=== PATIENT | male | born 1945 | race Caucasian/White ===

== ENCOUNTER 2018-06-25 16:53 | Inpatient (IN) ==
[2018-06-25] MEDS ORDERED: DILAUDID IV ONE (20:53)
[2018-06-25] MEDS ORDERED: ZOFRAN IV ONE (20:53)
[2018-06-25] MEDS ORDERED: KEFZOL 2 GM/D5W 2 GM/50 ML IVPB IV ONE (21:23)
--- NOTE | 2018-06-25 22:40 | HISTORY AND PHYSICAL ---
ADDENDUM HISTORY OF PRESENT ILLNESS: Mr. Juan Kruger is a 72-year-old male with no significant past medical history other than prior prostate cancer status post prostatectomy. He comes in today complaining of right ankle pain after slipping on a wet floor and twisting his ankle. He was brought to the ER at [facility], where it was noted he had a complete fracture of his right distal tibia and fibula. Dr. Rice, the orthopaedist, was notified, and he told them to transfer the patient here. He has currently seen the patient on the floor. The patient's only complaint is that of pain in his right ankle, not responding to 4 mg of morphine. He also complains of some cramping in that leg. He denies any head injury when he fell. He was able to brace himself with his arms backward, and no loss of consciousness. No cardiorespiratory complaints. PHYSICAL EXAMINATION: VITAL SIGNS: Stable. EXTREMITIES: His leg is wrapped in an NO dressing. I reviewed the x-rays the family brought, and he does have a large area of ecchymosis on the entire medial right area extending to the medial aspect of his right foot. He does have pulses in that foot and is able to wiggle his toes. CARDIORESPIRATORY: Normal. ABDOMEN: Benign. SKIN: No edema noted. Both feet are warm to touch. SUMMARY: This is an elderly man who sustained a distal tib-fib fracture and probably will be going for surgical intervention, plan to be decided by Dr. Rice, who is currently seeing the patient. He does have overflow incontinence, and will continue with his Flomax. Otherwise, he has no other medical problems and will be managed symptomatically. cc: Sukh Raphael MD
--- NOTE | 2018-06-26 00:59 | CONSULTATION ---
DATE OF CONSULTATION: 06/25/2018 CHIEF COMPLAINT: Right Ankle Injury. HISTORY OF PRESENT ILLNESS: Juan Friedman is a 72-year-old male who fell going down some steps, rolling his ankle and he sustained a fracture dislocation of his ankle. He was seen at [facility], where attempted closed reduction and splinting was performed. He was transferred here. PHYSICAL EXAMINATION: Reveals a well-developed, well-nourished male. He is alert, oriented, and cooperative with exam. His ankle is obviously dislocated. His foot, however, he is neurovascularly intact with intact sensation and brisk capillary refill. We performed a closed reduction in the room and placed him in a posterior splint with a stirrup. He tolerated this well. For past medical history, past surgical history, medicines, allergies see admission history and physical. ASSESSMENT: Right trimalleolar ankle fracture. PLAN: We will plan on doing an open reduction, internal fixation of his ankle in the morning. I have discussed with him the risks, benefits, and alternatives of surgery, including, but not limited to bleeding, nerve damage, infection, risk from anesthesia, hardware failure, malunion, nonunion, up to including loss of limb, life, and other imponderables. All questions were answered. No guarantees were given. They requested to proceed as planned. We will schedule surgery in the morning. cc: Tony Rice MD
[2018-06-26] MEDS ORDERED: ZOFRAN IV PRN (01:28)
[2018-06-26] MEDS ORDERED: TYLENOL PO PRN (01:33)
[2018-06-26] MEDS ORDERED: DILAUDID IV PRN (01:34)
[2018-06-26 06:43] LABS: INR 0.98; PROTIME 13.8 Seconds (11.0-16.0)
[2018-06-26 06:44] LABS: PTT 29.7 Seconds (22.3-41.8)
[2018-06-26 07:09] LABS: AGAP 12; ALB/GLOB RATIO 1.2; ALBUMIN 3.8 g/dL (3.5-5.0); ALKALINE PHOSPHATASE 72 U/L (32-122); BUN 16 mg/dL (8-22); CHLORIDE 100 mmol/L (98-107); COSMO 274; CREATININE 1.1 mg/dL (0.7-1.2); ESTIMATED GFR > 60; GLUCOSE 80 mg/dL (70-104); GOT 19 U/L (10-34); GPT 17 U/L (10-44); POTASSIUM 4.2 mmol/L (3.5-5.1); SODIUM 137 mmol/L (136-145); TCO2 25 mmol/L (25-35); TOTAL BILIRUBIN 0.74 mg/dL (0.20-1.00); TOTAL PROTEIN 6.9 g/dL (6.3-8.3)
[2018-06-26] MEDS ORDERED: MARCAINE 0.5% PF ONE (07:17)
[2018-06-26] MEDS ORDERED: XYLOCAINE-MPF 2% ONE (07:34)
[2018-06-26] MEDS ORDERED: DIPRIVAN 1% ONE (07:35)
[2018-06-26] MEDS ORDERED: KEFZOL 1 GM/D5W 2 GM/100 ML IVPB ONE (07:51)
[2018-06-26] MEDS ORDERED: NAROPIN 0.5% ONE (07:56)
[2018-06-26] MEDS ORDERED: VERSED ONE (07:57)
[2018-06-26 08:11] LABS: BASO# 0.04 X1000 (0.0-0.2); BASO% 0.4 % (0.0-0.8); EOS# 0.05 X1000 (0.0-0.7); EOS% 0.5 % (0.0-10.0); HEMATOCRIT 48.8 % (42.0-52.0); HEMOGLOBIN 16.1 g/dL (14.0-18.0); LYMPH# 1.56 X1000 (1.2-3.4); LYMPH% 15.9 % (20.5-51.1); MCH 27.7 PG (27-31); MCV 83.8 FL (81-99); MONO# 1.03 X1000 (0.11-0.59); MONO% 10.5 % (1.7-9.3); MPV 11.7 FL (7.4-10.4); NEUT# 7.12 X1000 (1.4-6.5); NEUT% 72.7 % (42.2-75.2); PLT 230 X1000 (130-400); RBC 5.82 XMIL (4.7-6.1); RDW 13.1 % (11.5-14.5)
[2018-06-26] MEDS ORDERED: QUELICIN (DOSE) ONE (08:36)
[2018-06-26] MEDS ORDERED: DECADRON ONE (08:58)
[2018-06-26] MEDS ORDERED: ZOFRAN ONE (08:58)
[2018-06-26] MEDS ORDERED: MIRALAX PO SCH (09:00)
[2018-06-26] MEDS ORDERED: EPHEDRINE ONE (09:14)
--- NOTE | 2018-06-26 10:25 | HISTORY AND PHYSICAL ---
DATE AND TIME: 06/25/2018 at 2045. CHIEF COMPLAINT: Fall with right ankle pain and injury. HISTORY OF PRESENT ILLNESS: Mr. Kruger is a 72-year-old male who initially presented to [facility] ER after sustaining a fall at home. The patient reports that he was walking on the porch and did go to step down the step off of the porch, this was a wooden step that was wet. The patient reports that he did slip due to the step being wet and did start to fall backward. The patient reports that he put his hands back to catch himself though in the process did twist his right ankle. The patient reports that he did land on his bottom in the sacral area. He denied hitting his head. He denied any loss of consciousness. At this time, he denies any lower back or buttock pain, though he did present to the ER with right ankle pain and deformity. In the ER at [facility], the patient's x-ray did show that he had fractures of the distal fibula and medial malleolus with suspected residual tibiotalar dislocation. X-ray of pelvis did not show any acute traumatic abnormalities suggested. There were some mild degenerative changes seen along the course of the included lumbosacral spine. There was mild bilateral hip arthritic joint space narrowing seen. According to the ER records at [facility], it looks as though the patient was given pain medication of morphine and sedation of Versed for closed reduction of his right ankle fracture/ dislocation. This was splinted, and the patient was transferred and accepted by Dr. Rice with Orthopedic Surgery. Upon our initial examination of the patient in his inpatient room, he was reporting pain that was 9/10. His ankle did appear to be possibly still dislocated. Dr. Rice with Orthopedic Surgery was present at bedside as well. At this time, we did give the patient pain medication of Dilaudid, and Dr. Rice did successfully reduce the patient's right ankle at bedside. An OCL posterior and stirrup splint was placed. The patient, prior to and post reduction, did have good neurovascular status in his right foot distal to his ankle injury. He had good capillary refill that was 2 seconds. Pulses were 2+. Dr. Rice does plan to take the patient for surgical repair of his right ankle fracture tomorrow morning. Other than his reported right ankle pain, the patient is denying any other pain at this time. He denies any headache or dizziness. He denies any chest pain, shortness of breath or cough. He denies any abdominal pain, nausea, vomiting or diarrhea. The patient does report that he has chronic problems with constipation and does take MiraLAX frequently. He denies any dysuria or urinary frequency. Other than his abnormalities noted to his right lower extremity secondary to his fracture, he denies any pain , numbness or tingling in other extremities. REVIEW OF SYSTEMS: A 14-point review of systems was conducted with the patient , and all were negative except for pertinent positives mentioned in the above HPI. PAST MEDICAL HISTORY: 1. Chronic constipation. 2. History of prostate cancer, status post prostatectomy. PAST SURGICAL HISTORY: 1. Cholecystectomy. 2. Prostatectomy. SOCIAL HISTORY: The patient did report social weekend use of alcohol, though states that he has not drank any alcohol for several years. There is no known tobacco or illicit drug use. The patient is retired. He does live at home. He reports that his son and daughter -in-law do live with him. FAMILY HISTORY: Positive for his mother having a history of emphysema and his father having a history of stroke and myocardial infarction. ALLERGIES: The patient has no known allergies. HOME MEDICATIONS: 1. Flomax p.o. daily. 2. MiraLAX 17 g p.o. daily. DIAGNOSTIC DATA: These laboratory results are based off the labs that were drawn earlier in the evening at [facility] on 06/25/2018 at 1408. White blood cell count is 9.4, hemoglobin 15.2, hematocrit 46.4, platelet count is 237. Sodium is 140, potassium 4.2, chloride 103, serum bicarb is 28, BUN is 15, creatinine 1.2, calcium is 9.2, glucose 98. Liver function tests were within normal limits. X-ray of right ankle 3 view did show severe fracture and dislocation of the ankle. The impression reports that there is an oblique fracture through the distal fibula. There is also an overriding and medial displacement of the proximal shaft when compared to the distal shaft. There was also a transverse fracture through the medial malleolus with dislocation of the shaft of the talus medially. The ankle mortis laterally is intact, though the ankle mortis is otherwise disrupted. There is a fracture through the fracture fragment between the distal tibia and fibula that the donor site may be posterior to the malleolus. There was also x-ray of ankle one view which reported fractures of the distal fibula and medial malleolus with suspected residual tibiotalar dislocation. Pelvis x-ray did show no acute traumatic abnormalities suggested, though there were mild degenerative changes seen along the course of the included lumbosacral spine. There was mild bilateral hip arthritic joint space narrowing seen. PHYSICAL EXAMINATION: VITAL SIGNS: Temperature is 98, heart rate 82, respirations 16, blood pressure 154/77, oxygen saturation is 98% on room air. GENERAL: Mr. Kruger is a very pleasant 72-year-old male. He was resting comfortably in the inpatient bed. He was in no acute distress, though he was reporting ankle pain that was 9/10. HEENT: Head is atraumatic and normocephalic. Pupils are equal, round and reactive to light, were 3 mm bilaterally and brisk. Oral mucosa is moist. Oropharynx is clear. NECK: Supple. Trachea midline. CARDIOVASCULAR: The patient has S1 and S2 present. No murmurs, gallops or rubs appreciated with a regular rate and rhythm. PULMONARY: The patient has symmetrical chest expansion bilaterally. Lung sounds are clear to auscultation in bilateral full iraheta. ABDOMEN: Soft, nontender, nondistended. Bowel sounds are present in all 4 quadrants and were normoactive. EXTREMITIES: The patient did initially have deformity noted to his right lower extremity, even with his splint placed at [facility] in place. Though even with his dislocation, the patient did have good capillary refill, and his neurovascular status was intact with pulses that were 2+ in his right foot. Though Dr. Rice with Orthopedic Surgery did do a bedside closed reduction of the patient's right ankle, this was splinted with OCL posterior and stirrup splint. Since reduction and placement of splint, the patient still continues to have good capillary refill which is 2 seconds. His neurovascular status is intact. All other extremities were within normal limits. Radial pulses were 2+. Pulse in the left foot was 2+ as well. INTEGUMENTARY: The patient's skin is pink, warm and dry. NEUROLOGICAL: The patient is alert and oriented x4. There were no focal neurological deficits noted. ASSESSMENT AND PLAN: 1. Right trimalleolar ankle fracture. As previously mentioned, the patient did undergo an initial reduction at [facility] with, from what I understand, was conscious sedation. Unfortunately, his right ankle was still dislocated upon arrival to our facility. Dr. Rice with Orthopedic Surgery did perform closed bedside reduction, and a splint was placed. The patient is remaining with good neurovascular status in his right foot distal to his injury. Dr. Rice with Orthopedic Surgery does plan to take the patient to surgery in the morning for repair of his fracture. He will be n.p.o. after midnight. We have ordered for morning labs as well as type and screen and an EKG. We will follow Orthopedic Surgery's further recommendations and follow along. 2. Fall from a standing position. The patient did state that he fell backward, landing on his sacral buttock area. Though he denies any pain at this time. The only pain he is reporting is his right ankle pain and injury. He denied hitting his head or any loss of consciousness. 3. Chronic constipation. We will continue the patient's MiraLAX. I have added on Colace as well given the patient will have decreased mobility and will be receiving narcotic pain medication. 4. GI prophylaxis will be provided with Protonix 40 mg IV q.24 hours. 5. DVT prophylaxis at this time will be provided with SCDs on the left lower extremity only. He will not be receiving any anticoagulants at this time given that he will be having surgery in the morning. We will defer further DVT prophylaxis to the Orthopedic Surgical Team. The patient has been placed on the Surgical Floor with telemetry. He will have vital signs q.4 hours. We will do strict intake and output. He will be n.p.o. Given this, we will provide some gentle IV hydration with normal saline at 85 mL per hour. Further orders and recommendations pending hospital course, diagnostic studies and physician evaluation. Dictated by HILDA Rico for Sukh Raphael MD cc: Sukh Raphael MD [facility]
[2018-06-26] MEDS ORDERED: NORCO-5 PO PRN (11:07)
[2018-06-26] MEDS: PERIDEX MT SCH ×2 (12:28→22:46)
[2018-06-26] MEDS: FLOMAX PO SCH (12:32)
[2018-06-26] MEDS: COLACE PO SCH ×2 (12:32→22:46)
[2018-06-26] MEDS: NS 1,000 ML IV SCH (12:34)
[2018-06-26] MEDS: PROTONIX IV SCH (12:35)
--- NOTE | 2018-06-26 16:59 | OPERATIVE NOTE ---
PROCEDURE DATE: 06/26/2018 PREOPERATIVE DIAGNOSIS: Right trimalleolar ankle fracture dislocation. POSTOP DIAGNOSIS: Right trimalleolar ankle fracture dislocation. PROCEDURE PERFORMED: Open reduction, internal fixation of right ankle trimalleolar fracture dislocation. ANESTHESIA: General with a regional popliteal block. SURGEON: Dr. Rice. MISSILE INSPECTOR PREFLIGHT: Ann. COMPLICATIONS: None. BLOOD LOSS: Minimal. TOURNIQUET TIME: Approximately hour and half. DESCRIPTION OF PROCEDURE: The patient was brought to the operative suite and placed in supine position. After successful administration of general anesthesia, a well-padded tourniquet was placed on right proximal thigh. Right lower extremity was prepped and draped in usual fashion. Leg was exsanguinated. Tourniquet insufflated to 350 torr. A longitudinal incision was made overlying the lateral malleolus fracture, dissected sharply through the skin down to the fascia protecting the superficial peroneal nerve. The fascia was incised exposing the fracture site. The fracture site was cleaned and reduced and 2 interfragmentary screws were placed and a Synthes distal fibular locking plate was placed with 5 locking screws distally and 4 bicortical screws proximally 3 of them locking. Attention then directed the medial malleolus fracture. A longitudinal incision made overlying the medial malleolus. The medial malleolus fracture was then cleaned and reduced and then two 45 mm partially threaded cancellous screws were placed. Excellent placement of hardware was obtained. The ankle was then stable. There was no syndesmosis, widening with stressing of the ankle. There was no posterior instability. X-rays AP, lateral, mortise views show the anatomic reduction of the fracture and the posterior malleolar fracture was less than 25% of the joint was anatomically reduced. The wounds were then copiously irrigated. The fascia was closed with 2-0 Vicryl, skin edge approximated 2-0 Vicryl, skin incisions were closed with interrupted nylon suture. A sterile dressing and a well-padded posterior splint with a stirrup and a cooling blanket were applied. The patient tolerated the procedure well without complication. At the end the procedure, all counts correct x2. The patient was transferred to the recovery room in stable condition. cc: Tony Rice MD
--- NOTE | 2018-06-26 18:56 | PROGRESS NOTE ---
DATE: 06/26/2018 SUBJECTIVE: Today, Mr. Kruger referred to be doing a lot better. He just came out of surgery. OBJECTIVE: Vital signs: Blood pressure 120/60, pulse was 95, respirations 16, temperature was 98.3. Patient was saturating about 96% on 2 L of oxygen. General: Mr. Kruger is a 72-year-old, gentleman. He was in bed. Not in any cardiopulmonary distress. HEENT: Mucosa is pink and moist. Anicteric. Acyanotic. Neck: Supple. Chest: Clear to auscultation. There were no crepitations, no rhonchi. Cardiovascular: Regular rate and rhythm. No murmurs, no rubs, no gallops. Abdomen: Soft, nontender. Bowel sounds present. Extremities: Right lower extremity is currently in orthopedic cast. Left is unremarkable. ASSESSMENT: 1. Right trimalleolar ankle fracture. Patient is status post surgical intervention. I presume open reduction internal fixation. However, I have not seen the operative report yet. Patient seems to be doing fairly okay after the surgery. He is immediate post surgery. We are going to keep monitoring his vitals and repeat his labs for tomorrow morning. 2. Status post mechanical fall. 3. Chronic constipation. We will continue with bowel regimen. cc: Yobani Monterroso MD
[2018-06-26] MEDS ORDERED: CHLORASEPTIC SPRAY MT PRN (22:27)
[2018-06-27 06:53] LABS: HEMATOCRIT 40.7 % (42.0-52.0); HEMOGLOBIN 13.3 g/dL (14.0-18.0); MCH 27.8 PG (27-31); MCHC 32.7 g/dL (33-37); MPV 11.7 FL (7.4-10.4); RBC 4.79 XMIL (4.7-6.1); RDW 13.2 % (11.5-14.5); WBC 10.34 X1000 (4.8-10.8)
[2018-06-27 07:02] LABS: AGAP 9; BUN 17 mg/dL (8-22); CALCIUM 8.1 mg/dL (8.8-10.2); CHLORIDE 103 mmol/L (98-107); COSMO 276; ESTIMATED GFR > 60; GLUCOSE 117 mg/dL (70-104); POTASSIUM 4.1 mmol/L (3.5-5.1); SODIUM 137 mmol/L (136-145); TCO2 25 mmol/L (25-35)
[2018-06-27] MEDS: FLOMAX PO SCH (10:18)
[2018-06-27] MEDS: COLACE PO SCH ×3 (10:18→22:31)
[2018-06-27] MEDS: MIRALAX PO SCH (10:19)
[2018-06-27] MEDS: PERIDEX MT SCH ×3 (10:19→22:32)
--- NOTE | 2018-06-27 14:50 | PROGRESS NOTE ---
DATE: 06/27/2018 SUBJECTIVE: This morning Mr. Kruger refers to be feeling a lot better than yesterday. He is now able to move his digits and he feels less pain. OBJECTIVE: Vital Signs: Blood pressure is 106/63, pulse is 95, respirations 20, temperature 98.1. General: Mr. Kruger is a 72-year-old gentleman. He was in bed. He is not in any distress. HEENT: Mucosa is pink and moist. Anicteric. Acyanotic. Neck: Supple. Chest: Clear to auscultation. No crepitations. No rhonchi. Cardiovascular: Regular rate and rhythm. Abdomen: Soft, nontender. Bowel sounds present. Extremities: The left is unremarkable. Right continues to be in orthopedic cast. LABORATORY DATA: WBC is 10.34, hemoglobin is 13.3, platelet count of 194,000. Chemistry is also reviewed, is unremarkable. Review of operative note yesterday indicates that open reduction/internal fixation of the right ankle trimalleolar fracture was done by Dr. Rice. ASSESSMENT: 1. Right trimalleolar ankle fracture. The patient is status post ORIF. Today is day #1 postop. Ortho is on board. 2. Status post mechanical fall. 3. Chronic constipation. We will continue with bowel regimen. PLAN: So, in general, Mr. Kruger is doing fairly okay. He is pending physical therapy evaluation. He is most times at home by himself, so he would need to be evaluated for possible rehab placement to help get him to his baseline. The patient has voiced his choice for [facility], so we will communicate this to the social services specialist. cc: Yobani Monterroso MD
--- NOTE | 2018-06-27 15:55 | PROGRESS NOTE ---
DATE: 06/27/2018 SUBJECTIVE: Juan Kruger is a 72-year-old male is postoperative day 1 from open reduction external fixation of his right ankle. He has no complaints. OBJECTIVE: He is a well-developed, well-nourished male, he is alert, oriented, cooperative exam, exam of his leg reveals the splint is intact. Toes are neurovascularly intact. His hematocrit is 40.7%. ASSESSMENT: Stable postop day 1 from a right ankle. PLAN: May wish to go to rehab, hopefully they can get him into rehab tomorrow sometime. cc: Tony Rice MD
[2018-06-27] MEDS: NORCO-10 PO PRN (16:41)
[2018-06-27] MEDS: NS 1,000 ML IV SCH (18:39)
[2018-06-27] MEDS: PROTONIX IV SCH (18:39)
[2018-06-27] MEDS: NORCO-7.5 PO PRN (22:35)
[2018-06-28] MEDS ORDERED: NS 500 ML IV ONE (03:41)
[2018-06-28 04:19] LABS: BASO# 0.02 X1000 (0.0-0.2); BASO% 0.2 % (0.0-0.8); EOS# 0.09 X1000 (0.0-0.7); HEMATOCRIT 39.2 % (42.0-52.0); HEMOGLOBIN 12.7 g/dL (14.0-18.0); IMM GRAN# 0.04 X1000 (0.0-0.04); IMM GRAN% 0.4 % (0.0-0.5); LYMPH# 1.38 X1000 (1.2-3.4); MCH 27.6 PG (27-31); MCHC 32.4 g/dL (33-37); MCV 85.2 FL (81-99); MONO# 1.15 X1000 (0.11-0.59); MONO% 12.5 % (1.7-9.3); NEUT# 6.53 X1000 (1.4-6.5); NEUT% 70.9 % (42.2-75.2); PLT 195 X1000 (130-400); RDW 13.1 % (11.5-14.5); WBC 9.21 X1000 (4.8-10.8)
[2018-06-28 04:45] LABS: AGAP 7; BUN 18 mg/dL (8-22); CHLORIDE 108 mmol/L (98-107); COSMO 283; ESTIMATED GFR > 60; GLUCOSE 103 mg/dL (70-104); POTASSIUM 4.4 mmol/L (3.5-5.1); SODIUM 141 mmol/L (136-145); TCO2 26 mmol/L (25-35)
[2018-06-28] MEDS: NORCO-7.5 PO PRN ×3 (05:08→22:10)
[2018-06-28 05:41] LABS: CK INDEX 1.7 (0.0-2.5); CK-MB 5.13 ng/mL (0.0-5.0)
--- NOTE | 2018-06-28 07:46 | EKG Report ---
Test Performed on : 06/27/2018 07:22:16 AM Test Reason : abnormal strip Blood Pressure : / mmHG Vent. Rate : 105 BPM Atrial Rate : 105 BPM P-R Int : 144 ms QRS Dur : 090 ms QT Int : 332 ms P-R-T Axes : 051 020 050 degrees QTc Int : 438 ms Sinus tachycardia. Otherwise normal ECG When compared with ECG of 03-FEB-2017 10:07, premature ventricular complexes. are no longer present Confirmed by Etelvina WELLS, Leeroy Parmar ([id number]) on 06/28/2018 9:13:32 PM
--- NOTE | 2018-06-28 09:41 | EKG Report ---
Test Performed on : 06/26/2018 07:03:02 AM Test Reason : EKG done Blood Pressure : / mmHG Vent. Rate : 075 BPM Atrial Rate : 075 BPM P-R Int : 142 ms QRS Dur : 090 ms QT Int : 386 ms P-R-T Axes : 054 010 047 degrees QTc Int : 431 ms Normal sinus rhythm. Normal ECG No previous ECGs available Confirmed by Leeroy Main MD ([id number]) on 06/28/2018 9:12:40 PM
[2018-06-28] MEDS: FLOMAX PO SCH (10:00)
[2018-06-28] MEDS: PERIDEX MT SCH (10:00)
[2018-06-28] MEDS: MIRALAX PO SCH ×2 (10:00→22:09)
[2018-06-28] MEDS: COLACE PO SCH ×2 (10:00→22:10)
--- NOTE | 2018-06-28 10:56 | EKG Report ---
Test Performed on : 06/28/2018 10:46:10 AM Test Reason : afib Blood Pressure : / mmHG Vent. Rate : 094 BPM Atrial Rate : 094 BPM P-R Int : 138 ms QRS Dur : 086 ms QT Int : 326 ms P-R-T Axes : 045 000 036 degrees QTc Int : 407 ms Normal sinus rhythm. Normal ECG When compared with ECG of 28-JUN-2018 03:08, (Unconfirmed) Sinus rhythm. has replaced Atrial fibrillation. Confirmed by Etelvina WELLS, Leeroy Parmar ([id number]) on 06/28/2018 9:17:27 PM
--- NOTE | 2018-06-28 11:01 | EKG Report ---
Test Performed on : 06/28/2018 03:08:32 AM Test Reason : 4N. No order in MT Blood Pressure : / mmHG Vent. Rate : 134 BPM Atrial Rate : 136 BPM P-R Int : 000 ms QRS Dur : 078 ms QT Int : 260 ms P-R-T Axes : 000 020 039 degrees QTc Int : 388 ms Atrial fibrillation. with rapid ventricular response. Abnormal ECG When compared with ECG of 27-JUN-2018 07:22, (Unconfirmed) Atrial fibrillation. has replaced Sinus rhythm. ST now depressed in Anterior leads Confirmed by Leeroy Main MD ([id number]) on 06/28/2018 9:14:30 PM
[2018-06-28] MEDS: SODIUM CHLORIDE 0.9% INJ SCH (12:37)
[2018-06-28] MEDS: PROTONIX IV SCH (12:37)
[2018-06-28] MEDS: MILK OF MAGNESIA PO PRN (12:38)
[2018-06-28] MEDS: LOPRESSOR PO SCH ×2 (14:05→22:10)
[2018-06-28] MEDS: ELIQUIS PO SCH ×2 (14:05→22:10)
--- NOTE | 2018-06-28 15:21 | ECHO REPORT ---
ORDER DATE: 06/28/2018 INTERPRETING PHYSICIAN: Dr. Stone Harrison ECHOCARDIOGRAPHIC MEASUREMENTS: Interventricular septum: 0.9 cm. Left ventricular posterior wall: 0.9 cm. Diastolic diameter: 4.4 cm. Left atrium: Size was normal. SUMMARY OF THE 2-DIMENSIONAL IMAGIN. Technically suboptimal study. Poor acoustic window. 2. Aortic valve leaflets were trileaflet. 3. Pulmonic valve was normal. Mitral valve was normal. Tricuspid valve was normal, 4. Peak velocity across the aortic valve less than 2 m/sec. There is no aortic stenosis or regurgitation. There is trace mitral regurgitation. Trace tricuspid regurgitation. Peak velocity across the tricuspid valve less than 2 m/sec. Normal left ventricular cavity size. Estimated ejection fraction of 60%. Endocardium not well visualized in all views. 5. There is no pericardial effusion. cc: Stone Harrison MD
--- NOTE | 2018-06-28 18:00 | PROGRESS NOTE ---
DATE: 06/28/2018 INTERVAL HISTORY: The patient's pain well controlled, but had an episode of atrial fibrillation with RVR last night which resolved spontaneously. Had another earlier this morning with heart rates up to approximately 140, but this again resolved spontaneously. The patient was asymptomatic during these episodes. No other acute events, no new complaints. The patient does state that on his last surgery during which they took his gallbladder out he believes he also had an irregular heart rate. REVIEW OF SYSTEMS: A 12-point review is negative except as per interval history. LABS: WBC 9.2, hemoglobin 12.7, hematocrit 39.2, platelets 195,000. Basic metabolic panel unremarkable aside from calcium 8.0, CK 295, troponin negative. IMAGING: Echocardiogram is a technically limited study, but normal EF and no major valvular abnormalities identified. PHYSICAL EXAMINATION: Vital Signs: T-max 98.4, pulse 90, respirations 16, blood pressure 111/69, O2 95% on 2 L by nasal cannula. General: No acute distress. HEENT: Normocephalic and atraumatic. Moist mucous membranes. Neck: No cervical adenopathy. Cardiovascular: Regular rate and rhythm currently. No murmurs, rubs, or gallops noted. Pulmonology: Clear to auscultation bilaterally. No wheezing, rales, or rhonchi. Abdomen: Soft, nontender, nondistended. Bowel sounds positive. Extremities: Peripheral pulses intact. Right ankle bandaged and in cast. No clubbing or cyanosis identified. Neurologic: Cranial nerves grossly intact. No focal deficits identified. Psychiatric: Normal mood and affect. Awake, alert and oriented x3. Skin: No new rashes or lesions identified. ASSESSMENT AND PLAN: 1. Atrial fibrillation with a rapid ventricular response: This appears to be paroxysmal. Two episodes overnight but back into normal sinus rhythm at the time of my examination. Cardiology consulted. They plan on adjusting medications and discussing with Surgery at that time and also starting him on anticoagulation. We will move to Cardiac Intensive Care Unit if bed becomes available to more easily treat him if he goes back into rapid atrial fibrillation again, but if he remains in normal sinus rhythm after adjustment of his medication by Cardiology then he may be able to stay on the floor. No Cardiac Intensive Care Unit bed or Coronary Intensive Care bed currently available. 2. Fall with a right trimalleolar ankle fracture status post surgical fixation. Pain well controlled. Plan on discharge to rehabilitation in the next 1-2 days if his cardiac issues stabilize and a bed is obtained. 3. Chronic constipation. Continue with bowel regimen. 4. Deep vein thrombosis prophylaxis. Rupert.
--- NOTE | 2018-06-28 18:21 | PROGRESS NOTE ---
DATE: 06/28/2018 SUBJECTIVE: Mr. Kruger is a 72-year-old male who is postoperative day #2 from a right ankle open reduction/internal fixation. He has no new complaints. OBJECTIVE: General: He is well developed, well nourished male. He is alert, oriented and cooperative with the examination. He is in no acute distress. Right Lower Extremity: Exam of his right lower extremity reveals his splint is clean, dry and intact. He can wiggle all of his toes. His sensation of all toes is intact. ASSESSMENT: Postoperative day #2 from a right ORIF ankle fracture. PLAN: We will continue to monitor him. Hopefully, once he is medically stable and there is a bed available he can be discharged to rehab. Dictated by AASHISH Gee for Tony Rice MD cc: AASHISH Gee MD
--- NOTE | 2018-06-28 21:07 | CARDIOLOGY CONSULTATION ---
DATE: 06/28/2018 CONSULTATION REQUESTED BY: Hospitalist service. The reason is paroxysmal atrial fibrillation. Palpitations symptoms. HISTORY: Mr. Kruger 72-year-old male presented to the [facility] on June 25 after suffering a fall and injuring his right foot. Patient underwent right trimalleolar ankle fracture-dislocation with open reduction, internal fixation of that lesion. That was done on June [address] Rice. Subsequently patient was found to have episodes of paroxysmal atrial fibrillation on telemetry. Patient felt some palpitations. He was given some beta nivia and he converted spontaneously. The patient denies having any chest pain. He states that this has happened before around the time when he had a cholecystectomy. PAST HISTORY: Positive for chronic constipation, prostate cancer. SURGICAL HISTORY: Prostatectomy, cholecystectomy. SOCIAL HISTORY: He retired , lives at home. Not a smoker or drinker. FAMILY HISTORY: Mother had emphysema, father had stroke, myocardial infarction. ALLERGIES: He has no allergies. HOME MEDICATIONS: Listed at this time included apixaban 5 mg twice a day, metoprolol 25 twice a day, Flomax 0.4 mg daily. REVIEW OF SYSTEMS: Really noncontributory other than the isolated episode palpitations around the time of cholecystectomy. PHYSICAL EXAM: Blood pressure 98/43, temperature 97.8 degrees, pulse 89, respirations 18. He is awake, alert, no distress.HEENT: Unremarkable. Chest: Clear to auscultation and percussion. Heart: Sounds regular and rhythmic. No gallop or murmur. Abdomen: Obese, nontender. No masses, no hepatomegaly. Extremities: Good pulses. No peripheral edema. Neurological: Moves 4 extremities. He has a boot immobilizer in the right leg. LAB: His blood work showed hemoglobin 12.7, hematocrit 39.2, sodium 141, potassium 4.4, BUN 18, creatinine 1.0. IMPRESSION: 1. Patient who presents with a broken ankle and he is status post right malleolar fracture open reduction, internal fixation. Today will be his postoperative day #2. 2. Paroxysmal atrial fibrillation. 3. History of prostate cancer. RECOMMENDATION: At this time I would suggest to continue present medical therapy as you are doing with metoprolol and Eliquis and the patient may be discharged and we will arrange for followup at our office. cc: Buck Denise MD [facility]
[2018-06-28] MEDS ORDERED: HALL'S COUGH LOZENGE MT PRN (23:13)
[2018-06-29] MEDS: PERIDEX MT SCH ×2 (01:12→11:18)
[2018-06-29] MEDS: NORCO-10 PO PRN (01:35)
--- NOTE | 2018-06-29 08:10 | EKG Report ---
Test Performed on : 06/29/2018 07:35:49 AM Test Reason : afib Blood Pressure : / mmHG Vent. Rate : 077 BPM Atrial Rate : 077 BPM P-R Int : 142 ms QRS Dur : 086 ms QT Int : 352 ms P-R-T Axes : 039 007 020 degrees QTc Int : 398 ms Normal sinus rhythm. Normal ECG When compared with ECG of 28-JUN-2018 10:46, No significant change was found Confirmed by Leeroy Main MD ([id number]) on 06/29/2018 8:47:15 AM
--- NOTE | 2018-06-29 09:52 | PROGRESS NOTE ---
DATE: 06/29/2018 SUBJECTIVE: Mr. Kruger is a 72-year-old male who is postoperative day 3 from a right ankle open reduction and internal fixation. He has no new complaints. OBJECTIVE: General: He is a well developed, well nourished male. He is in no acute distress. Vital signs: His vital signs are stable. He is afebrile. Extremities: Exam of his right lower extremity reveals his splint is clean, dry and intact. ASSESSMENT: Stable postoperative day 3 from a right ankle open reduction and internal fixation. PLAN: Once he is medically stable, he can be discharged to rehab. We will have him follow up in the office with Dr. Rice next Thursday. Dictated by AASHISH Gee for Tony Rice MD cc: AASHISH Gee MD
[2018-06-29] MEDS: LOPRESSOR PO SCH (11:18)
[2018-06-29] MEDS: MILK OF MAGNESIA PO PRN (11:18)
[2018-06-29] MEDS: COLACE PO SCH (11:18)
[2018-06-29] MEDS: ELIQUIS PO SCH (11:18)
[2018-06-29] MEDS: FLOMAX PO SCH (11:18)
[2018-06-29] MEDS: MIRALAX PO SCH (11:18)
[2018-06-29] MEDS: NORCO-7.5 PO PRN ×2 (11:20→16:12)
[2018-06-29] MEDS: PROTONIX IV SCH (11:30)
[2018-06-29] MEDS: SODIUM CHLORIDE 0.9% INJ SCH (11:30)
[2018-06-29] MEDS ORDERED: DULCOLAX PR ONE (11:31)
[2018-06-29] MEDS ORDERED: GOLYTELY PO ONE (14:39)
--- NOTE | 2018-06-29 15:17 | DISCHARGE SUMMARY ---
ADMISSION DATE: 06/25/2018 DISCHARGE DATE: 06/29/2018 CONSULTATIONS: Dr. Rice with Orthopedics. Dr. Buck Denise with Cardiology. PERTINENT PROCEDURES: 1. Open reduction and internal fixation of right ankle trimalleolar fracture. 2. Echocardiogram showed an EF of 60%. DISCHARGE DIAGNOSES: 1. Right trimalleolar ankle fracture-dislocation status post open reduction and internal fixation of the right ankle trimalleolar fracture-dislocation by Dr. Rice. He will be discharged to [facility] rehabilitation. He will follow up with Dr. Rice next Thursday. 2. Atrial fibrillation with rapid ventricular response (RVR), appears to be paroxysmal. He had 2 episodes overnight on the . He is now back into sinus rhythm. Cardiology was consulted, who stated he would need to continue on his metoprolol and Eliquis and can follow up as an outpatient. He continues to be in sinus rhythm. 3. Chronic constipation. Continue with bowel regimen. HOSPITAL COURSE: Briefly, Mr. Friedman is a 72-year-old male who presented to the ED at [facility] on June 25 after sustaining a fall and injuring his right foot. He was noted to have a trimalleolar ankle fracture-dislocation and underwent an open reduction and internal fixation with Dr. Rice on the . On the , he was noted to have multiple episodes of paroxysmal atrial fibrillation noted on telemetry. The patient did feel some palpitations. He was given beta blockers and converted spontaneously. He was evaluated by Cardiology. They recommended for him to continue on his metoprolol and Eliquis. He has been working with Physical Therapy and will be discharged to rehabilitation at [facility] and can follow up with Dr. Rice next Thursday, as well as Dr. Denise on an outpatient basis. VITAL SIGNS AT TIME OF DISCHARGE: Temperature is 98.6 degrees, heart rate 86, respirations 20, blood pressure 116/95, O2 is 94% on room air. DISCHARGE DIET: Regular. DISCHARGE MEDICATIONS: 1. MiraLAX 17 g p.o. daily. 2. Eliquis 5 mg p.o. b.i.d. 3. Colace 100 mg p.o. b.i.d. 4. Pratts 7.5 mg 1 tablet p.o. q.4 h. p.r.n. pain. 5. Milk of Magnesia 30 mL p.o. daily p.r.n. 6. Metoprolol 25 mg p.o. b.i.d. 7. Flomax 0.4 mg p.o. daily. DISPOSITION: Mr. Friedman is being discharged to [facility] in [place]. FOLLOW-UP: 1. He is to follow up with Dr. Rice on 07/06/2018. 2. He is also to follow up with Cardiology on an outpatient basis. They have arranged for a 30- day cardiac event monitor through their office that will be mailed to the patient, and if he has any questions concerning the instructions for the monitor, he can contact their office. DISCHARGE INSTRUCTIONS: He can return to the ED for any worsening of symptoms. Dictated by HILDA Comer for Isidro Lawrence MD Addendum: Patient seen and examined by myself. Agree with HILDA note. It reflects my assessment and plan. Patient is being discharged from hospital in stable condition. Will be seen by [facility] Food Service Worker after he is discharged from rehab facility. cc: MD Buck Amor MD Richard S. Sharp, MD MTDD
--- NOTE | 2018-06-29 15:37 | Diag Imaging Result Doc PS360 ---
EXAM: CHEST-PORTABLE HISTORY: REHAB PLACEMENT TECHNIQUE: AP portable chest single view COMPARISON: 07/12/2010 FINDINGS: Poor inspiratory effort. Heart is mildly prominent. There is vascular distention with bilateral infiltrates. There are scattered granuloma. No pleural effusions identified. IMPRESSION: Pulmonary edema versus pneumonia Electronically signed by Grey Valera 06/29/2018 3:35 PM
[2018-06-29 16:35] VITALS: BP 105/60
== END 2018-06-29 16:44 | DRG 493 ==
LOC: DIRADM 16:53 → SUATTDRO 16:53 → 4N 19:52
PROVIDERS: ATTEND Internal Medicine
CPT/HCPCS: 71010; 71045; 76000; 80048; 80053; 82550; 82553; 83735; 84484; 85025; 85027; 85610; 85730; 86850; 86900; 86901; 93005; 93010; 93306; 94761; 94762; 94799; 97162; 97530; A9270; C9113; J0330; J0690; J1100; J1170; J2250; J2405; J2795; J7030; J7040; S0020; S0164